=== PATIENT | female | born 1940 | race Caucasian/White ===

== ENCOUNTER → 2020-08-01 | Outpatient (CLI) | payer MEDICARE, OTHER ==
[~2020-08-01] MED LIST: APIX5TAB3 PO; DONE5TAB7 PO; ISOS60TA2 PO; LORA10TA55 PO; MEMA10TA PO; MONT10TA80 PO; MULT-246 PO; SIMV5TAB14 PO
[2020-08-04 13:07] VITALS: BP 112/69
== END ==
LOC: LAB 14:30
PROVIDERS: ATTEND Nurse Anesthetist, Certified Registered
DX: Z01.812 Encounter for preprocedural laboratory examination (principal); Z12.11 Encounter for screening for malignant neoplasm of colon; Z20.828 Contact with and (suspected) exposure to other viral communicable diseases
CPT/HCPCS: C9803; U0003

== ENCOUNTER → 2020-08-04 | Day surgery (SDC) | payer MEDICARE, OTHER ==
[~2020-08-04] MED LIST changes: +IV RINGERS SOLUTION,LACTATED 1,000 ML IV SCH; +KETAMINE HCL IN NACL, ISO-OSM 50 MG/5 ML SYRINGE ONE; +LIDOCAINE 2% PF 5 ML VIAL. ONE; +MIDAZOLAM HCL PF 2 MG/2 ML VIAL. IV ONE; +PROPOFOL 10,000 MCG/ML (20ML) VIAL IV ONE
[2020-08-04 13:07] VITALS: BP 112/69
--- NOTE | 2020-08-09 17:06 | PATHOLOGY ---
[facility] Accession Number: [id number] . 01 Material submitted: . PART A: stomach - ANTURM/GASTRITIS PART B: colon - SIGMOID POLYP. Modifiers: sigmoid PART C: colon - TRANSVERSE POLYP. Modifiers: transverse . 02 Diagnosis: A. Gastric biopsies, antrum: - Chronic gastritis, mild. . B. Colon biopsy, sigmoid polyp: - Prominent mucosal fold with few mucosal-associated lymphoid aggregates. . C. Colon biopsy, transverse colon polyp: - Tubular adenoma. (JPM:santiago; 08/09/2020) S 08/09/2020 0921 Local . 02 Comment: Sections of the gastric biopsy reveal gastric antral/fundic transition mucosa showing congestion and mild chronic inflammation. A properly controlled immunoperoxidase stain for Helicobacter is negative for Helicobacter organisms. . Sections of the sigmoid polyp biopsy reveal a prominent mucosal fold containing a few mucosal-associated lymphoid aggregates. There are no adenomatous changes or evidence of malignancy. . Sections of the transverse colon polyp biopsy reveal a tubular adenoma showing no high grade dysplasia or evidence of malignancy. (JPM:santiago; 08/09/2020) . Special stain performed: Immunoperoxidase stain for Helicobacter on A1. . 02 Electronically signed: . Oseas George MD, Pathologist NPI- [id number] . 01 Gross description: . A. The specimen is received in formalin, labeled "Carline Sandoval, antrum/gastritis". Received are two segments of pale carmen soft tissue ranging in size from 0.4 to 0.7 cm in maximum dimensions. The specimen is submitted entirely in cassette A1. . B. The specimen is received in formalin, labeled "Carline Sandoval, sigmoid polyp". Received is a segment of pale carmen soft tissue measuring 0.4 cm in maximum dimensions. The specimen is submitted entirely in cassette B1. . C. The specimen is received in formalin, labeled "Carline Sandoval, transverse colon". Received is a segment of pale carmen soft tissue measuring 0.3 cm in maximum dimensions. The specimen is submitted entirely in cassette C1. (CAA; 08/08/2020) QAC/QAC 08/08/2020 1211 Local . 02 Pathologist provided ICD-10: K29.50, D12.3 . 02 CPT . 241155, 755999, 694681, [id number] Specimen Comment: A courtesy copy of this report has been sent to [phone], [phone] Specimen Comment: [id number] Specimen Comment: Report sent to / DR CANTRELL Performed at: [facility] [address] [facility] [address] [address], [place] [id number] MD Mich Romero MD Phone: [phone] [facility]formed [facility]: [facility] [address], [place] [id number] MD Oseas Geogre MD Phone: [phone]
== END | disposition home or self-care (01) ==
LOC: SURG 10:19
PROVIDERS: ATTEND Internal Medicine Gastroenterology
DX: R19.5 Other fecal abnormalities (principal); R12 Heartburn; K21.00 Gastro-esophageal reflux disease with esophagitis, without bleeding; K44.9 Diaphragmatic hernia without obstruction or gangrene; K29.00 Acute gastritis without bleeding; K57.30 Diverticulosis of large intestine without perforation or abscess without bleeding; K64.0 First degree hemorrhoids; K63.5 Polyp of colon; Z98.84 Bariatric surgery status; Z88.8 Allergy status to other drugs, medicaments and biological substances; Z79.899 Other long term (current) drug therapy
CPT/HCPCS: 43239; 45380; J2001; J2704; J7120